=== PATIENT | male | born 1945 | race Caucasian/White ===

== ENCOUNTER 2016-11-26 11:36 | Emergency (ER) | payer OTHER ==
[~2016-11-26] VITALS: Ht 172.7 cm; Wt 81.8 kg
[~2016-11-26 11:36] MED LIST: AMLO5TAB2 PO; HYDR-4003 PO; SULF1TAB35 PO
[2016-11-26 11:41] VITALS: BP 192/106; PULSE 75; RESP 14; O2SAT 99
--- NOTE | 2016-11-26 11:59 | ED.REPORT ---
HPI-General Illness Date of Service Nov 26, 2016 ED Provider: Juve Valencia DO Pt is a 71 y/o male with a history of hypertension, COPD and sensory neuropathy who presents to the ED [facility] [place] with hypertension onset prior to arrival. Pt is asymptomatic but does have baseline SOB. He denies headache, chest pain, abdominal pain, numbness/tingling, focal weakness, or any other symptoms. Nursing Notes Stated Complaint: HIGH BLOOD PRESSURE Chief Complaint: General Complaint Nursing Notes Reviewed: Yes Allergies: Coded Allergies: No Known Allergies (Unverified , 08/07/15) Scheduled Amlodipine (Amlodipine) 5 Mg Tablet 5 MG PO DAILY Amlodipine (Amlodipine) 5 Mg Tablet 5 MG PO DAILY Sulfamethoxazole/Trimeth 800-160 mg (Bactrim DS 800-160 mg) 1 Each Tablet 1 TABLET PO BID Scheduled PRN Hydrocodone-Acetaminophen 5-325 mg (Hydrocodone-Acetaminophen 5-325 mg) 1 Each Tablet 1 TABLET PO Q4H PRN PRN For Pain General Time Seen by MD: 11:59 Chief Complaint Other (Hypertension) Hx Obtained From: Patient Arrived By: Walk-in (sent from [place]) Sudden in Onset?: Yes Onset Occurred: Just prior to arrival Severity: Current: No pain currently Severity: Maximum: No pain Pertinent Negative: Pt denies other symptoms Recent Healthcare: Recent doctor visit Similar Sx Previous: Yes Past Medical History Past Medical History Seasonal allergies Arthritis Reports: Hypertension Family History noncontributory Social History The patient is active and exercises daily Prior THC use, quit when it exacerbated COPD symptoms Ambulatory Status Independent Review of Systems Hypertension Full Review of Systems Respiratory: Reports: Shortness of breath (baseline ) Cardiovascular: Denies: Chest pain GI: Denies: Abdominal pain Neurologic: Denies: Focal weakness, Headache, Numbness Complete sys rev & neg: except as marked. Physical Exam Vital Signs Vital Signs Date Time Temp Pulse Resp B/P Pulse Ox O2 Delivery O2 Flow Rate FiO2 11/26/16 12:31 206/107 11/26/16 11:41 37.2 75 14 192/106 99 Room Air Initial VS: Reviewed Head / Eyes: Atraumatic, Normocephalic Neck: Supple, Full range of motion Extremities: Vascular intact, Neuro intact, No swelling, No tenderness Skin: Warm, Dry, No cyanosis Neurologic: Alert, Oriented, Nonfocal Psychiatric: Mood/affect normal, Behavior normal, Normal thought content General/Constitutional: Awake, Alert Hypertensive Respiratory / Chest: Atraumatic, Breath sounds NL, Breath sounds = bilat, No respiratory distress Cardiovascular: Heart rate NL, Regular rhythm, Heart sounds NL Re-Eval/Medical Decision Med Decision/Clinical Course Hypertension without signs of end organ damage and known noncompliance and resistance to taking meds. Patient at this juncture is willing to begin amlodipine. Recommend close follow-up. 30 days of amlodipine 5 mg prescribed. Return precautions given. Source of Hx: Old records Time of Eval: 12:03 Re-Evaluation/Progress Note: Discussed plan for discharge. Patient understands and agrees with plan. F/U instructions and RTER warnings given. All questions addressed at this time. Counseled Regarding: Diagnosis, Lab results, Need for follow-up, When/why to return to ED Discharge & Departure Primary Impression: Hypertension Hypertension type: unspecified secondary hypertension Qualified Code: I15.9 - Secondary hypertension, unspecified Disposition: Home Discharge Condition All VS Reviewed: Yes Condition: Stable Additional Instructions: Thank you for entrusting us with your medical care today. Your emergency department evaluation today was reassuring. Focus on a healthy diet and exercise to help with your high blood pressure. Take 5 mg of amlodipine daily for your high blood pressure. Also take 81 mg of aspirin daily. Please call your primary care physician in the next few days for a recheck. Please return to the emergency department for any new or worsening conditions including any chest pain, severe headache, numbness/tingling, inability ot walk , lightheadedness, or weakness. Referrals: [facility] (PCP) [employer] Attestation Portions of this note were transcribed by Darya Narayanan. I, Dr. Valencia, personally performed the history, physical exam and medical decision-making; I reviewed and confirmed the accuracy of the information in the transcribed note. Signed by Henrry Singh, 11/26/16. copies to: [facility] Juve Valencia DO Nov 26, 2016 11:59 Darya Narayanan Nov 26, 2016 12:07
[2016-11-26] MEDS ORDERED: AMLO5TAB2 PO (12:09)
[2016-11-26 12:31] VITALS: BP 206/107
== END 2016-11-26 12:43 | disposition home or self-care (01) ==
LOC: SED 11:36
DX: I15.9 Secondary hypertension, unspecified (principal); R06.02 Shortness of breath; J44.9 Chronic obstructive pulmonary disease, unspecified